=== PATIENT | female | born 1935 | race American Indian/Alaskan Native ===

== ENCOUNTER 2018-02-01 14:14 | Emergency (ER) | payer MEDICARE ==
[2018-02-01 14:47] VITALS: RESP 18; TEMP 98; O2SAT 98
--- NOTE | 2018-02-01 15:07 | ED PDOC ---
Addendum entered and electronically signed by Jaqueline Etienne PA 02/03/18 13:17: Addendum Addendum: 02/03/18 13:16 received call for + MRSA from wound culture. pt was discharged home on augmentin; NOT sensitive. I spoke with dr. Anderson, who saw patient in wound care center yesterday. She will contact patient and Change antibiotic to doxycyline. Original Note: Arrival/HPI - General Chief Complaint: Lower Extremity Problem/Injury Time Seen by Provider: 02/01/18 14:41 Historian: Patient - History of Present Illness Narrative History of Present Illness (Text): 02/01/18 14:50 82 F with no significant past medical history, who presents with cc of intermittent pain in great toe on right foot for 1 week status post slipping and falling down the steps about 1 month ago. Patient reports there was no pain when she initially fell, and the pain started recently, with associated soreness. Patient states she was using peroxide and witch gunnar, noting witch gunnar helped alleviate the soreness. Patient notes she came in to the Emergency department for further evaluation since the pain has not left. Patient notes it has been many years since she last saw a Business Analyst Sales Operations. Patient denies fevers or any other complaints. Time/Duration: 1 week (Patient notes her toe pain started recently for about 1 week) Symptom Onset: Sudden Symptom Course: Intermittent (patient notes intermittent pain since onset about 1 week ago) Context: Slipped (Patient notes she slipped and fell about 1 month ago, toe pain started recently) Past Medical History - Provider Review Nursing Documentation Reviewed: Yes - Infectious Disease Hx of Infectious Diseases: None - Reproductive Menopause: Yes - Cardiac Hx Cardiac Disorders: Yes Hx Hypertension: Yes Other/Comment: cardiac problem - Pulmonary Hx Respiratory Disorders: No - Neurological Hx Neurological Disorder: No - Psychiatric Hx Substance Use: No - Anesthesia Hx Anesthesia: No Family/Social History - Physician Review Nursing Documentation Reviewed: Yes Family/Social History: No Known Family HX Smoking Status: Unknown If Ever Smoked Hx Alcohol Use: No Hx Substance Use: No Allergies/Home Meds Allergies/Adverse Reactions: Allergies No Known Allergies Allergy (Verified 02/01/18 14:47) Home Medications: Home Meds Medication Instructions Recorded Confirmed Chlorthalidone [Hygroton] 50 mg PO DAILY 02/01/18 02/01/18 Losartan [Cozaar] 100 mg PO DAILY 02/01/18 02/01/18 Metoprolol Succinate [Kapspargo 25 mg PO DAILY 02/01/18 02/01/18 Sprinkle] Rivaroxaban [Xarelto] 15 mg PO DAILY 02/01/18 02/01/18 Simvastatin [Zocor] 20 mg PO DAILY 02/01/18 02/01/18 Review of Systems - Physician Review All systems were reviewed & negative as marked: Yes (All other systems negative except that noted in the HPI.) Physical Exam - Physical Exam Narrative Physical Exam (Text): PE: Gen: VS reviewed, alert, well developed, well nourished, nontoxic, mild distress Eye: EOMI, PERRL Neck: no JVD, supple, no adenopathy CV: regular rate, regular rhythm, no rubs,no murmur, S1, S2 Pulm: no distress, clear to auscultation, no wheeze, no rhonchi, breath sounds equal, no rales Abd: soft, nontender, no guarding, no rebound, no rigidity Ext: Open wound at sole aspect of her 1st toe at the metatarsal joint. No fluctuance. Minor tenderness. No purulent drainage. No cellulitic skin changes. Skin: good color, no rash, no cyanosis Psych: responds appropriately to questions, normal affect Neuro: oriented x3, CN2-12 intact grossly, motor intact, sensation intact Vital Signs Reviewed: Yes Vital Signs Temp Pulse Resp BP Pulse Ox 02/01/18 14:39 98 F 96 H 18 127/81 98 Temperature: Afebrile Blood Pressure: Normal Pulse: Tachycardic (at 96) Respiratory Rate: Normal Appearance: Positive for: Well-Appearing, Non-Toxic, Comfortable Pain Distress: Mild Mental Status: Positive for: Alert and Oriented X 3 Medical Decision Making ED Course and Treatment: 02/01/18 14:50 Impression: 82 year old female presents to the Emergency department for intermittent pain in great toe on right foot for 1 week status post slipping and falling down the steps about 1 month ago. Differential Diagnosis included but are not limited to: Plan: -- BMP -- CBC (with differential) -- X-Ray of right great toe -- Reassess and disposition Progress Notes: 02/01/18 17:31 case discussed with podiatry, consult appreciated, empiric antibiotics, follow up in wound care center. US not critically important at this time and will be cancelled. patient remained stable for discharge and will follow up at wound center. - RAD Interpretation Narrative RAD Interpretations (Text): 02/01/18 16:00 X-ray of right foot reviewed by radiologist, shows: FINDINGS: BONES: Normal. No fracture. JOINTS: Normal. SOFT TISSUES: Normal. OTHER FINDINGS: None. IMPRESSION: No acute findings Radiology Orders: 02/01/18 14:57 FOOT RIGHT GREAT TOE ROUTINE [RAD] Stat Hat Parts Cutter Machine: Radiologist - Scribe Statement The provider has reviewed the documentation as recorded by the Scribe Yanna Mccord All medical record entries made by the Scribe were at my direction and personally dictated by me. I have reviewed the chart and agree that the record accurately reflects my personal performance of the history, physical exam, medical decision making, and the department course for this patient. I have also personally directed, reviewed, and agree with the discharge instructions and disposition. Disposition/Present on Arrival - Present on Arrival Any Indicators Present on Arrival: No History of DVT/PE: No History of Uncontrolled Diabetes: No Urinary Catheter: No History of Decub. Ulcer: No History Surgical Site Infection Following: None - Disposition Have Diagnosis and Disposition been Completed?: Yes Diagnosis: Foot ulcer Disposition: HOME/ ROUTINE Disposition Time: 17:32 Patient Plan: Discharge Condition: STABLE Additional Instructions: Follow up at the wound care center as soon as possible. HUGH [facility], thank you for letting us take care of you today. Your provider was Dr. Wilmer Buckley and you were treated for foot ulcer. The emergency medical care you received today was directed at your acute symptoms. If you were prescribed any medication, please fill it and take as directed. It may take several days for your symptoms to resolve. Return to the Emergency Department if your symptoms worsen, do not improve, or if you have any other problems. Please contact your doctor or call one of the physicians/clinics you have been referred to that are listed on the Patient Visit Information form that is included in your discharge packet. Bring any paperwork you were given at discharge with you along with any medications you are taking to your follow up visit. Our treatment cannot replace ongoing medical care by a primary care provider outside of the emergency department. Thank you for allowing the [facility] team to be part of your care today. If you had an X-Ray or CT scan: A Radiologist will review the ED reading if any change in treatment is needed we will contact you. If you had a blood, urine, or wound culture: It will take several days for the results, if any change in treatment is needed we will contact you. If you had an STI test: It will take 48 hours for the results. Please call after 1 week if you have not heard back. Prescriptions: Amoxicillin/Clavulanate [Augmentin 875 MG-125 MG] 1 tab PO BID 5 Days #10 tab Referrals: [facility] [Outside] - Follow up with primary Forms: [employer] (German)
[2018-02-01 16:05] LABS: BASO # 0.01 K/mm3 (0.0-2.0); BASO % 0.2 % (0.0-3.0); EOS # 0.1 (0.0-0.7); EOS % 2.9 % (1.5-5.0); GRAN # 2.82 (1.4-6.5); GRAN % 62.8 % (50.0-68.0); LYMPH # 0.9 (1.2-3.4); LYMPH % 19.6 % (22.0-35.0); MEAN CELL VOLUME 91.5 fl (80.0-105.0); MEAN CORPUSCULAR HEMOGLOBIN 30.7 pg (25.0-35.0); MEAN CORPUSCULAR HGB CONC 33.6 g/dl (31.0-37.0); MEAN PLATELET VOLUME 9.4 fl (7.0-11.0); MONO # 0.7 (0.1-0.6); MONO % 14.5 % (1.0-6.0); RBC 4.23 10^6/uL (3.5-6.1); RED CELL DISTRIBUTION WIDTH 13.9 % (11.5-14.5); WHITE BLOOD COUNT 4.5 10^3/uL (4.5-11.0)
--- NOTE | 2018-02-01 16:08 | CP.PCM.CON ---
<Eliz Connellya - Last Filed: 02/01/18 16:10> History of Present Illness - History of Present Illness History of Present Illness: Podiatry consulte note for Dr. Apodaca/Monica, 82 F with no significant past medical history, who was seen in the ED with pain in the right hallux 1 week s/p falling down the stairs a month ago. Patient reports there was no pain when she initially fell, and the pain started recently, with associated soreness.Patient states she has been treating it herself, however since the pain has not resolved she came to the ED. Denies seeing a coconut candy maker regularly. Patient denies fevers or any other complaints. Denies f/n/v/sob/any other pedal complains Past Patient History - Infectious Disease Hx of Infectious Diseases: None - Past Social History Smoking Status: Unknown If Ever Smoked - CARDIAC Hx Cardiac Disorders: Yes Hx Hypertension: Yes Other/Comment: cardiac problem - PULMONARY Hx Respiratory Disorders: No - NEUROLOGICAL Hx Neurological Disorder: No - PSYCHIATRIC Hx Substance Use: No - ANESTHESIA Hx Anesthesia: No Meds Allergies/Adverse Reactions: Allergies Allergy/AdvReac Type Severity Reaction Status Date / Time No Known Allergies Allergy Verified 02/01/18 14:47 Physical Exam - Constitutional Appears: Well, Non-toxic, No Acute Distress - Head Exam Head Exam: ATRAUMATIC - Extremities Exam Additional comments: Right lower extremity exam: Vascular Dp/pt pulses nonpalpable, tg warm to warm, no erythema noted, CFT<3 secs x5 derm: superficial ulceration noted in the first ray sulcus, no malodor, dry sca ling skin noted jt wound, no drainage, no fluctuance, no erythema, no edema, no tracking or tunneling noted, no probe to bone or tendon ortho: minimal pain with hallux ROM, pain on palpation to the first digit neuro: protective sensation grossly intact via ipswich 07/07. - Neurological Exam Neurological exam: Alert Results - Vital Signs Recent Vital Signs: Last Vital Signs Temp 98 F 02/01/18 14:39 Pulse 96 H 02/01/18 14:39 Resp 18 02/01/18 14:39 BP 127/81 02/01/18 14:39 Pulse Ox 98 02/01/18 14:39 - Labs Result Diagrams: 02/01/18 16:01 Labs: Laboratory Results - last 24 hr 02/01/18 16:01 WBC 4.5 RBC 4.23 Hgb 13.0 Hct 38.7 MCV 91.5 MCH 30.7 MCHC 33.6 RDW 13.9 Plt Count 283 MPV 9.4 Gran % 62.8 Lymph % (Auto) 19.6 L Pine % (Auto) 14.5 H Eos % (Auto) 2.9 Baso % (Auto) 0.2 Gran # 2.82 Lymph # (Auto) 0.9 L Pine # (Auto) 0.7 H Eos # (Auto) 0.1 Baso # (Auto) 0.01 Assessment & Plan - Assessment and Plan (Free Text) Assessment: 82 yo female seen and evaluated in the ED for a superficial wound to the right hallux; stable, noninfected. Plan: patient seen and evaluated with Dr. Apodaca chart, labs and vitals reviewed; WBC 4.5 afebrile wound cleansed with saline wound dressed with betadine, DSD Right foot x-ray ordered and reviewed; no osseous abnormalities noted, no subcutaneous emphysema wound cultures taken and ordered patient will follow up in wound care center within a week thank you for the consult. <Maxim Apodaca - Last Filed: 02/01/18 17:45> Results - Vital Signs Recent Vital Signs: Last Vital Signs Temp 98 F 02/01/18 14:39 Pulse 96 H 02/01/18 14:39 Resp 18 02/01/18 14:39 BP 127/81 02/01/18 14:39 Pulse Ox 98 02/01/18 14:39 - Labs Result Diagrams: 02/01/18 16:01 02/01/18 16:01 Labs: Laboratory Results - last 24 hr 02/01/18 02/01/18 16:01 16:01 WBC 4.5 RBC 4.23 Hgb 13.0 Hct 38.7 MCV 91.5 MCH 30.7 MCHC 33.6 RDW 13.9 Plt Count 283 MPV 9.4 Gran % 62.8 Lymph % (Auto) 19.6 L Pine % (Auto) 14.5 H Eos % (Auto) 2.9 Baso % (Auto) 0.2 Gran # 2.82 Lymph # (Auto) 0.9 L Pine # (Auto) 0.7 H Eos # (Auto) 0.1 Baso # (Auto) 0.01 Sodium 138 Potassium 3.8 Chloride 104 Carbon Dioxide 25 Anion Gap 13 BUN 26 H Creatinine 1.7 H Est GFR ( Amer) 35 Est GFR (Non-Af Amer) 29 Random Glucose 116 H Calcium 10.1 Attending/Attestation - Attestation I have personally seen and examined this patient.: Yes I have fully participated in the care of the patient.: Yes I have reviewed all pertinent clinical information: Yes
[2018-02-01 16:16] LABS: CALCIUM 10.1 mg/dL (8.4-10.5)
--- NOTE | 2018-02-01 16:28 | RAD ---
Date of service: 02/01/2018 PROCEDURE: Right Foot Radiographs. HISTORY: pain, focus base of toe COMPARISON: None. FINDINGS: BONES: Normal. No fracture. JOINTS: Normal. SOFT TISSUES: Normal. OTHER FINDINGS: None. IMPRESSION: No acute findings
[2018-02-01] MEDS ORDERED: Amoxicillin-Clav 875-125 mg Tab PO STA (17:34)
[2018-02-01 22:02] VITALS: BP 126/74; PULSE 77
== END 2018-02-01 20:30 | disposition home or self-care (01) ==
LOC: ED 14:14 → MERGE 14:14 → ED 20:30
DX: L97.519 Non-pressure chronic ulcer of other part of right foot with unspecified severity (principal); I10 Essential (primary) hypertension